=== PATIENT | female | born 1950 | race Caucasian/White ===

== ENCOUNTER → 2021-12-13 07:40 | Outpatient (CLI) | payer MEDICARE, OTHER, SELFPAY ==
--- NOTE | 2021-12-13 | DI.MRI.S_ITS ---
BREAST MRI OF BOTH BREASTS: 12/13/2021 CLINICAL: Malignant neoplasm of the Left breast. Comparison is made to exams dated: 10/24/2021 mammogram, 05/22/2020 mammogram, and 12/07/2018 mammogram - [facility]. The patient was placed prone in a dedicated breast imaging coil. Precontrast axial STIR and 3D FLASH without fat saturation sequences were obtained. Both before and after bolus injection of contrast, sequential 1-minute axial 3D FLASH with fat saturation sequences for 3 time points, with subtraction images and maximum intensity projections (MIP's) generated. Delayed sagittal FLASH images with fat saturation were also obtained. Computer-aided detection, including computer algorithm analysis of MRI image data for lesion detection and characterization, pharmacokinetic analysis, with further physician review for interpretation, was performed. Image quality: Excellent. There is mild background parenchymal enhancement. Right breast: No suspicious mass, non-mass enhancement, or focus. Scattered fibroglandular tissue. Left breast: At the 1 o'clock position at middle depth 10 centimeters from the nipple, there is an irregular spiculated mass measuring 15 x 17 x 11 millimeters. No other suspicious mass, focus, or non mass enhancement is identified. Scattered fibroglandular tissue. Miscellaneous: The partially visualized abdomen and mediastinum are unremarkable. No suspicious lymph nodes by size criteria or morphology in the axilla or internal mammary chain. 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 No overtly suspicious axillary or internal mammary lymph nodes by size criteria or morphology. This exam was interpreted at Station ID: [id number]. Electronically Signed By: Sony Morales M.D. lc/:12/13/2021 14:18:04 ACR BI-RADS Category 6: Known biopsy proven malignancy [id number]
== END ==
PROVIDERS: Family Provider Physician Assistant Medical; PCP Physician Assistant Medical; Referring Provider Physician Assistant Medical; Visit Provider Physician Assistant Medical
DX: C50.412 Malignant neoplasm of upper-outer quadrant of left female breast (principal); Z17.0 Estrogen receptor positive status [ER+]
CPT/HCPCS: 77049; A9579